=== PATIENT | female | born 1950 | race Caucasian/White ===

== ENCOUNTER 2023-08-14 10:13 | Emergency (ER) | payer MEDICARE, BC, SELFPAY ==
--- NOTE | 2023-08-14 10:20 | ED.URI ---
HPI - URI/Sore Throat General Chief Complaint: Upper Respiratory Infection Stated Complaint: sore throat Time Seen by Provider: 08/14/23 10:21 Source: patient Mode of arrival: ambulatory Limitations: no limitations History of Present Illness HPI Narrative: Valencia is a 73-year-old female patient presenting to the clinic today with complaints of cough, runny nose, postnasal drip, and sore throat x2 days. She reports she is concerned that she may have COVID and she has possibly been exposed. Would like testing done in the clinic today. MD elicited complaint: cough and nasal congestion Related Data Home Medications Medication Instructions Recorded Confirmed Vitamin D3 2,000 units DAILY 09/19/19 08/14/23 aspirin 81 mg chewable tablet 81 mg DAILY 09/19/19 08/14/23 atorvastatin 10 mg tablet 10 mg DAILY 09/19/19 08/14/23 Allergies Allergy/AdvReac Type Severity Reaction Status Date / Time azithromycin Allergy Unknown Hives / Verified 09/19/19 08:47 Red Face Review of Systems Review of Systems: Pertinent positives per HPI. Patient denies any fever, chills, rash, visual changes, dizziness, shortness of breath, chest pain, palpitations, nausea, vomiting, diarrhea, constipation, abdominal pain, or any urinary issues. PMFSH Social History Social History Gender identity (if verbalized by the patient): Female Comments At the time of my signature, I reviewed and agree with the nursing past medical, surgical, social, and family history. There is no relevant family history pertinent to the patient complaint. Exam Narrative: General: Well-developed, well nourished, in no apparent distress Head: Normocephalic, atraumatic Eyes: Pupils equally round and reactive to light bilaterally, EOM intact, sclera and conjunctive clear, no discharge, lids normal Ears: TMs intact and congested, ear canals clear, no drainage, grossly hearing normal. Nose: Nares patent, clear discharge, no inflammation, no sinus tenderness. Mouth: Oral pharynx without lesions or masses, good dentition, MMM. Postnasal drip Neck: Supple, trachea midline, no enlargement of anterior or posterior cervical nodes, no thyroid masses or goiter palpable. Cardio: Regular rate and rhythm, s1 and s2 normal, no murmur appreciated. Resp: Clear to auscultation bilaterally, no rhonchi, rales, wheezing or rubs Course Course Emergency Course: Portions of this record may have been created with voice recognition software. Level of Care: Express Care Visit Vital Signs Vital signs: Vital signs reviewed MDM - URI/Sore Throat MDM Narrative Medical decision making narrative: At the time of visit patient is resting comfortably on the exam table. Patient appears to be nontoxic. COVID, influenza, and strep test were performed. COVID was positive. Influenza and strep test were negative. Paxlovid not recommended as patient takes atorvastatin. Supportive measures were discussed with the patient and they voiced understanding discharge instructions and agrees to treatment plan. Strict return precautions reviewed Differential Diagnosis Differential diagnosis: Likely upper respiratory infection, otitis media, sinusitis, viral infection, bronchitis, influenza, pharyngitis and other (COVID) Discharge Plan Discharge Clinical Impression: COVID-19 Patient Disposition: Home, Self-Care Condition: Stable Instructions: Antibiotic Form, COVID-19 (Coronavirus Disease 2019) (ED) Additional Instructions: Patient symptoms are mild and medication will interact with Paxlovid Increase fluids and stay well hydrated Tylenol/motrin for pain/fever Flonase and OTC antihistamines as directed Vicks vapor rub to open sinuses Sinus rinses for congestion Cepacol spray, cough drops, throat lozenges, warm tea with honey/lemon, gargle salt water to soothe throat BRAT diet for diarrhea Clear liquids x 24 hour
[2023-08-14 10:27] VITALS: BP 155/68; PULSE 81; RESP 16; TEMP 37.3; O2SAT 98
== END 2023-08-14 11:19 | disposition home or self-care (01) ==
PROVIDERS: Emergency Provider Nurse Practitioner Family; PCP Internal Medicine
DX: U07.1 COVID-19 (principal); R01.1 Cardiac murmur, unspecified; E78.00 Pure hypercholesterolemia, unspecified; E55.9 Vitamin D deficiency, unspecified; Z79.82 Long term (current) use of aspirin
CPT/HCPCS: 87081; 87426; 87804; 87880; 99213; C9803; G0463

== ENCOUNTER 2025-06-27 13:36 | Emergency (ER) | payer MEDICARE, BC, SELFPAY ==
--- NOTE | ~2025-06-27 | XR_ITS ---
EXAMINATION: XR abdomen/kub 1V, 06/27/2025 14:40 SHELTER DIRECTOR HISTORY: Left flank pain COMPARISON: No comparisons available. Technique: 3 view. Findings: Moderate fecal content, no dilated bowel loops Bilateral renal calculi the largest right kidney superior pole 6 x 6 mm. No acute osseous abnormality. Impression: 1. No acute abnormality. Reviewed, dictated and finalized at location P. TER DIRECTOR Impression: 1. No acute abnormality.
[2025-06-27 14:00] VITALS: BP 184/78; PULSE 78; RESP 18; TEMP 36.7; O2SAT 99
--- NOTE | 2025-06-27 14:23 | ED_ITS ---
HPI - General Adult General Chief complaint: Urogenital-Female Stated complaint: blood in urine Time Seen by Provider: 06/27/25 14:23 Source: patient Mode of arrival: ambulatory Limitations: no limitations History of Present Illness HPI narrative: 75-year-old female patient presents to [facility] with complaints of blood in her urine that she noticed this morning. Patient states she has a little muscle pain to the left flank area that she has noticed for the past couple of days. Patient states she does have history of kidney stones but has not had any in many years. Patient denies any pain with urination. Denies any fevers body aches or chills. Denies any lower abdominal pain. Related Data Home Medications ?Medication ?Instructions ?Recorded ?Confirmed ?Last Taken ?Type Vitamin D3 2,000 units DAILY 09/19/19 1 10/15/22 Unknown History aspirin 81 mg chewable tablet 81 mg DAILY 09/19/19 Unknown History atorvastatin 10 mg tablet 10 mg DAILY 09/19/19 3 Unknown History Allergies Allergy/AdvReac Type Severity Reaction Status Date / Time azithromycin Allergy Unknown Hives / Verified 06/27/25 13:59 Red Face Review of Systems Review of Systems: CONSTITUTIONAL: Denies fever, chills, or sweats. EYES: Denies visual changes, redness, or discharge. ENT: Denies rhinorrhea, congestion, sore throat, or otalgia. CARDIOVASCULAR: Denies chest pain, palpitations, or edema. RESPIRATORY: Denies cough or dyspnea. GASTROINTESTINAL: Denies abdominal pain, nausea, vomiting, or diarrhea. GENITOURINARY: Positive dysuria with hematuria. SKIN: Denies rash or itching. MUSCULOSKELETAL: Denies back pain, joint pain, or myalgia. NEUROLOGIC: Denies headache, numbness, or weakness. PSYCHIATRIC: Denies anxiety or depression. [facility] Past Medical History Medical History (Updated 06/27/25 @ 15:21 by Liana Lin APRN) Kidney stones Tubal ligation evaluation Hypercholesteremia Social History Social History Gender identity (if verbalized by the patient): Female Comments At the time of my signature I agree with nursing past medical history, surgical, social, and family history. There is no relevant family history pertinent to the presenting complaint. Exam Narrative: GENERAL: Well-appearing, well-nourished, and in no acute distress. HEAD: Normocephalic, atraumatic. EYES: PERRLA and EOMI. ENT: Nares clear, no rhinorrhea or epistaxis. Mucous membranes moist. NECK: Supple. No lymphadenopathy CHEST: Clear to auscultation. No respiratory distress. HEART: Regular rate and rhythm. No murmur heard. Normal peripheral pulses. ABDOMEN: Soft, nontender, nondistended, normal active bowel sounds. No CVA t enderness on percussion. EXTREMITIES: Normal range of motion. No edema. SKIN: Warm, dry, no rash. NEURO: No focal deficits. Alert and oriented x3. Course Course Level of Care: Express Care Visit Reevaluation(s) Reevaluation #1: Re-evaluated patient after the x-ray and resulted. Notified that it does appear that she has got some bilateral kidney stones most likely with the largest measuring approximately 6 x 6 mm that paired with her urine of 1+ leukocytes and the fact that her pain has increased significantly within 20 minutes we are going to send her to the [facility] ER for further evaluation as per her request. Date: 06/27/25 Time: 15:19 Vital Signs Vital signs: Vital Signs Temperature 36.7 C 06/27/25 14:00 Pulse Rate 78 06/27/25 14:00 Respiratory Rate 18 06/27/25 14:00 Blood Pressure 184/78 H 06/27/25 14:00 Pulse Oximetry 99 06/27/25 14:00 Oxygen Delivery Room Air 06/27/25 14:00 Temperature 36.7 C 06/27/25 14:00 Pulse Rate 78 06/27/25 14:00 Respiratory Rate 18 06/27/25 14:00 Blood Pressure 184/78 H 06/27/25 14:00 Pulse Oximetry 99 06/27/25 14:00 Oxygen Delivery Room Air 06/27/25 14:00 Vital signs reviewed. The patient has been informed that they may have pre-hypertension or Hypertension based on a BP reading in the department. I recommend that the patient call the primary care provider listed on their discharge instructions or a physician of their choice this week to arrange follow up for further evaluation of possible pre-hypertension or Hypertension Transfer Transfered to: [facility] Transportation: Other (Private vehicle) Transfer rationale: Kidney stones with possible infection and increase in pain Accepting physician: Dr. Helms Medical Decision Making MDM Narrative Medical decision making narrative: Plan of care for patient is to obtain KUB to assess for possible kidney stones since there is a significant amount of blood in the urine and she does have some left-sided flank pain along with positive history. Differential Diagnosis Differential Diagnosis: Differential diagnosis: Uncomplicated lower UTI, uncomplicated UTI, pyelonephritis Vital Signs Vital Signs: Vital Signs Temperature 36.7 C 06/27/25 14:00 Pulse Rate 78 06/27/25 14:00 Respiratory Rate 18 06/27/25 14:00 Blood Pressure 184/78 H 06/27/25 14:00 Pulse Oximetry 99 06/27/25 14:00 Oxygen Delivery Room Air 06/27/25 14:00 Temperature 36.7 C 06/27/25 14:00 Pulse Rate 78 06/27/25 14:00 Respiratory Rate 18 06/27/25 14:00 Blood Pressure 184/78 H 06/27/25 14:00 Pulse Oximetry 99 06/27/25 14:00 Oxygen Delivery Room Air 06/27/25 14:00 Lab Data Labs: Lab Results 06/27/25 Range/Units 14:07 POC Urine Color Red POC Urine Clarity Clear POC Urine pH 5.5 POC Ur Specif Gordon 1.020 POC Urine Protein 1+ (Negative) POC Ur Glucose (UA) Negative (Negative) POC Urine Ketones Negative (Negative) POC Urine Blood 3+ (Negative) POC Urine Nitrite Negative (Negative) POC Urine Bilirubin Negative (Negative) POC Urine Urobilinogen 0.2 POC U Leukocyte Esteras 1+ (Negative) Imaging Data Radiologist's impression: [facility] [address] [place] [address] XRay Report Signed Patient: Valencia Torres : 1950 MR#: [id number] Age: 75 Acct:[id number] Loc: [facility] ADM Date: 06/27/[address]: Ordering Physician: Liana Lin APRN Date of Service: 06/27/25 Procedure(s): XR abdomen/kub 1V Accession Number(s): [id number] cc: Garfield, Pao WEBB; Delia, Liana D. DRIVER/REFUSE COLLECTOR~ EXAMINATION: XR abdomen/kub 1V, 06/27/2025 14:40 PHARMACY ACCOUNT DIRECTOR HISTORY: Left flank pain COMPARISON: No comparisons available. Technique: 3 view. Findings: Moderate fecal content, no dilated bowel loops Bilateral renal calculi the largest right kidney superior pole 6 x 6 mm. No acute osseous abnormality. Impression: 1. No acute abnormality. Reviewed, dictated and finalized at location P. MACY ACCOUNT DIRECTOR Critical Care Time Critical Care Time Critical Care Time: No Discharge Plan Discharge Clinical Impression: Bilateral kidney stones Patient Disposition: Acute Care Hospital Condition: Stable Instructions: Antibiotic Form Patient Language: Togolese Prescriptions: No Action atorvastatin 10 mg tablet 10 mg DAILY Vitamin D3 2,000 units DAILY aspirin 81 mg Tablet,Chewable 81 mg DAILY Follow-up/Referrals: Garfield,Pao Esparza MD [Primary Care Provider, Internal Medicine] Time of Disposition: 15:19
[2025-06-27 14:26] LABS: EDUAAPPEAR Clear; EDUABILI Negative (Negative); EDUABLOOD 3+ (Negative); EDUACOLOR1 Red; EDUAGLUCOSE Negative (Negative); EDUAKETONE Negative (Negative); EDUALEUKO 1+ (Negative); EDUANITRATE Negative (Negative); EDUAPH 5.5; EDUAPROTEIN 1+ (Negative); EDUASPGRAVITY 1.020; EDUAUROBILI 0.2
== END 2025-06-27 15:20 | disposition short-term general hospital (02) ==
PROVIDERS: Emergency Provider Nurse Practitioner Family; PCP Internal Medicine
DX: N20.0 Calculus of kidney (principal); E78.00 Pure hypercholesterolemia, unspecified; Z79.82 Long term (current) use of aspirin
CPT/HCPCS: 74018; 81003; 87086; 99213; G0463